=== PATIENT | male | born 1985 | race African-American/Black ===

== ENCOUNTER 2024-04-01 13:08 | Inpatient (IN) | payer OTHER ==
[2024-04-01 14:58] VITALS: RESP 18; BMI 25.0
[2024-04-01] MEDS ORDERED: BENZOCAINE/MENTHOL (CHLORASEPTIC ) LOZENGE MM PRN (15:48)
[2024-04-01] MEDS ORDERED: IBUPROFEN 400 MG TABLET (FP) PO PRN (15:48)
[2024-04-01] MEDS ORDERED: hydrOXYzine PAMOATE 25 MG CAPSULE (FP) PO PRN (15:48)
[2024-04-01] MEDS ORDERED: MAG HYDROX/AL HYDROX/SIMETH 30 ML UNIT-DOSE CUP PO PRN (15:48)
[2024-04-01] MEDS ORDERED: NALOXONE HCL 0.4 MG/ML VIAL IM PRN (15:48)
[2024-04-01] MEDS ORDERED: ACETAMINOPHEN 325 MG TABLET (FP) PO PRN (15:48)
[2024-04-01] MEDS ORDERED: NALOXONE HCL (KLOXXADO) 8 MG SPRAY NS PRN (15:48)
[2024-04-01] MEDS ORDERED: LOPERAMIDE HCL 2 MG CAPSULE PO PRN (15:48)
[2024-04-01] MEDS ORDERED: guaiFENesin 600 MG TABLET.ER (FP) PO PRN (15:48)
[2024-04-01] MEDS ORDERED: POLYETHYLENE GLYCOL (HEALTHYLAX) 3350 17 GM PACKET PO PRN (15:48)
[2024-04-01] MEDS ORDERED: BENZONATATE 200 MG CAPSULE PO PRN (15:48)
[2024-04-01] MEDS ORDERED: MAGNESIUM HYDROX 2400MG/30ML ORAL SUSPENSION 30 ML CUP PO PRN (15:48)
[2024-04-01] MEDS ORDERED: IBUPROFEN 600 MG TABLET (FP) PO PRN (15:48)
[2024-04-01] MEDS ORDERED: PRENATAL VITAMINS W/ FOLIC ACID TABLET (FP) PO ONE (18:16)
[2024-04-01] MEDS: PRENATAL VITAMINS W/ FOLIC ACID TABLET (FP) PO SCH (18:18)
[2024-04-01] MEDS ORDERED: TUBERCULIN PPD 5 TU/0.1ML VIAL ID ONE (20:33)
[2024-04-01] MEDS: MELATONIN 5 MG TABLETS PO SCH (21:38)
[2024-04-01] MEDS: THIAMINE 100 MG TABLET PO SCH (21:38)
[2024-04-01] MEDS: AMMONIUM LACTATE 12% LOTION 225 GM BOTTLE TP SCH (21:39)
[2024-04-02] MEDS: BICTEGRAV/EMTRICIT/TENOFOV (BIKTARVY) 50-200-25 MG TABLET PO SCH (07:12)
[2024-04-02] MEDS: CHLORHEXIDINE GLUCONATE 4% CLEANSER FOR DECOLONIZATION TP SCH (10:58)
[2024-04-02] MEDS: SPIRONOLACTONE 25 MG TABLET PO SCH (10:58)
[2024-04-02] MEDS: FLUTICASONE PROP 0.05% 16 GM NASAL SPRAY NS SCH (10:58)
[2024-04-02 12:34] LABS: CHLORIDE 108 mmol/L (98-107); HEMATOCRIT 37.6 % (35.4-49); HEMOGLOBIN 12.4 GM/dL (11.7-16.9); MCH 30.5 pg (25.7-33.7); MCHC 32.9 g/dl (32.0-35.9); MEAN CELL VOLUME 92.6 fl (80-96); MEAN PLT VOLUME 9.7 fl (7.5-11.1); PLATELET COUNT 141 10^3/uL (134-434); POTASSIUM 3.8 mmol/L (3.5-5.1); RBC 4.06 M/mm3 (4.00-5.60); RDW 14.2 % (11.9-15.9); SODIUM 139 mmol/L (136-145); WHITE BLOOD COUNT 3.9 K/mm3 (4.0-10.0)
[2024-04-02 12:39] LABS: ALBUMIN 2.6 g/dl (3.4-5.0); ANION GAP 3 mmol/L (4-13); CALCIUM 8.6 mg/dL (8.5-10.1); CO2 28 mmol/L (21-32); GLUCOSE,RANDOM 92 mg/dL (74-106)
[2024-04-02 12:40] LABS: BLOOD UREA NITROGEN 8.4 mg/dL (7-18)
[2024-04-02 12:42] LABS: CREATININE 0.7 mg/dL (0.55-1.3); SGPT/ALT 17 U/L (13-61)
[2024-04-02 12:43] LABS: SGOT/AST 14 U/L (15-37)
[2024-04-02 12:44] LABS: BILIRUBIN,TOTAL 0.3 mg/dL (0.2-1); TOT PROT 6.1 g/dl (6.4-8.2)
[2024-04-02 12:45] LABS: ALK PHOS 70 U/L (45-117)
[2024-04-02 13:41] LABS: SYPHILIS W/ RPR CONF REACTIVE (NONREACTIVE)
[2024-04-03 20:16] LABS: PH,URINE 7.5 (5.0-8.0); URINE APPEARANCE CLEAR; URINE BILIRUBIN NEGATIVE (NEGATIVE); URINE COLOR YELLOW; URINE GLUCOSE (UA) NEGATIVE (NEGATIVE); URINE KETONE NEGATIVE (NEGATIVE); URINE LEUK ESTERASE NEGATIVE (NEGATIVE); URINE NITRITE NEGATIVE (NEGATIVE); URINE PROTEIN NEGATIVE (NEGATIVE)
[2024-04-03 21:14] VITALS: BP 111/66; PULSE 81; TEMP 97.2
[2024-04-08] MEDS ORDERED: ESTRADIOL VALERATE 100 MG/5 ML VIAL IM SCH (10:00)
== END 2024-04-04 07:24 | disposition short-term general hospital (02) | DRG 772 ==
LOC: YASAS 13:08 → Y5N 18:20
PROVIDERS: ADMIT Allergy & Immunology; ATTEND Psychiatry & Neurology Pain Medicine
PROC: HZ42ZZZ Group Counseling for Substance Abuse Treatment, Cognitive-Behavioral (ICD-10-PCS; principal; 2024-04-01)
DX: F15.20 Other stimulant dependence, uncomplicated (principal); F64.0 Transsexualism; Z21 Asymptomatic human immunodeficiency virus [HIV] infection status; R55 Syncope and collapse; Z79.899 Other long term (current) drug therapy; Z79.890 Hormone replacement therapy
CPT/HCPCS: 36415; 80053; 80305; 80307; 81003; 82962; 85027; 86593; 86780; 86803; 87811; 93005; 93010

== ENCOUNTER 2024-04-03 22:29 | Observation (INO) | payer OTHER ==
[2024-04-03 23:31] VITALS: BMI 23.0
[2024-04-03] MEDS: SODIUM CHLORIDE 0.9% 500 ML INFUS.BAG IV ONE (23:52)
[2024-04-04] LABS: BASO % 0.7 % (0-2.0); EOS % 3.6 % (0-4.5); HEMATOCRIT 37.8 % (35.4-49); HEMOGLOBIN 12.5 GM/dL (11.7-16.9); LYMPH % 27.9 % (8-40); MCH 30.1 pg (25.7-33.7); MEAN CELL VOLUME 91.2 fl (80-96); MEAN PLT VOLUME 8.2 fl (7.5-11.1); MONO % 10.8 % (3.8-10.2); PLATELET COUNT 164 10^3/uL (134-434); RBC 4.14 M/mm3 (4.00-5.60); RDW 14.3 % (11.9-15.9); WHITE BLOOD COUNT 5.3 K/mm3 (4.0-10.0)
[2024-04-04 00:28] LABS: ALBUMIN 2.7 g/dl (3.4-5.0); BLOOD UREA NITROGEN 12.6 mg/dL (7-18); CALCIUM 8.6 mg/dL (8.5-10.1); MAGNESIUM 1.8 mg/dL (1.8-2.4)
[2024-04-04 00:32] LABS: CREATININE 0.8 mg/dL (0.55-1.3)
[2024-04-04 00:33] LABS: BILIRUBIN,TOTAL 0.3 mg/dL (0.2-1); TOT PROT 6.4 g/dl (6.4-8.2)
[2024-04-04 06:03] VITALS: RESP 18
[2024-04-04 09:01] LABS: HEMOGLOBIN 12.8 GM/dL (11.7-16.9); MCH 30.6 pg (25.7-33.7); MCHC 33.6 g/dl (32.0-35.9); MEAN PLT VOLUME 8.4 fl (7.5-11.1); PLATELET COUNT 152 10^3/uL (134-434); RBC 4.17 M/mm3 (4.00-5.60); RDW 14.2 % (11.9-15.9); WHITE BLOOD COUNT 4.2 K/mm3 (4.0-10.0)
[2024-04-04 09:22] LABS: ALBUMIN 2.7 g/dl (3.4-5.0); BLOOD UREA NITROGEN 12.1 mg/dL (7-18); CALCIUM 8.6 mg/dL (8.5-10.1); MAGNESIUM 1.6 mg/dL (1.8-2.4)
[2024-04-04 09:25] LABS: CREATININE 0.7 mg/dL (0.55-1.3)
[2024-04-04 09:26] LABS: BILIRUBIN,TOTAL 0.4 mg/dL (0.2-1); TOT PROT 6.5 g/dl (6.4-8.2)
[2024-04-04] MEDS: MAGNESIUM 2GM/50ML STERILE WATER IVPB IVPB ONE (10:16)
[2024-04-04] MEDS: BICTEGRAV/EMTRICIT/TENOFOV (BIKTARVY) 50-200-25 MG TABLET PO SCH (10:17)
[2024-04-04] MEDS: ENOXAPARIN NA (PORCINE) 40 MG/0.4 ML DISP.SYRIN SQ SCH (10:17)
[2024-04-04 16:30] VITALS: BP 129/61; PULSE 83; TEMP 98.2
[2024-04-04] MEDS ORDERED: MELATONIN 5 MG TABLETS PO PRN (22:00)
== END 2024-04-04 20:25 | disposition home or self-care (01) ==
LOC: JER 22:29 → UNDOADMOB 04-04 01:39 → JERBED 04-04 01:39 → OBSVTOIN 04-04 03:32 → INTOOBSV 04-04 03:32 → J4S 04-04 05:00 → JERBED 04-04 05:00 → J4S 04-04 11:04 → JERBED 04-04 11:04
PROVIDERS: ADMIT Internal Medicine; ATTEND Internal Medicine
PROC: 3E023GC Introduction of Other Therapeutic Substance into Muscle, Percutaneous Approach (ICD-10-PCS; principal; 2024-04-04)
PROC: 3E033GC Introduction of Other Therapeutic Substance into Peripheral Vein, Percutaneous Approach (ICD-10-PCS; 2024-04-04)
PROC: 3E0337Z Introduction of Electrolytic and Water Balance Substance into Peripheral Vein, Percutaneous Approach (ICD-10-PCS; 2024-04-04)
DX: R55 Syncope and collapse (principal); R42 Dizziness and giddiness; F11.90 Opioid use, unspecified, uncomplicated; F64.0 Transsexualism; Z79.890 Hormone replacement therapy; B20 Human immunodeficiency virus [HIV] disease; F41.8 Other specified anxiety disorders; F43.10 Post-traumatic stress disorder, unspecified; F31.9 Bipolar disorder, unspecified; Z29.89 Encounter for other specified prophylactic measures
CPT/HCPCS: 36415; 70450-TC; 71045-TC-FY; 80053; 80061; 82962; 83036; 83735; 84100; 84443; 84484; 85025; 85027; 93306-TC; 96372; 96374; 99285-25; G0378

== ENCOUNTER 2024-04-04 17:40 | Inpatient (IN) | payer OTHER ==
[2024-04-04 18:49] VITALS: BMI 24.4
[2024-04-04] MEDS ORDERED: P-EPHED 60MG/TRIPROLIDI 2.5MG TABLET PO PRN (20:18)
[2024-04-04] MEDS ORDERED: BENZONATATE 200 MG CAPSULE PO PRN (20:18)
[2024-04-04] MEDS ORDERED: ACETAMINOPHEN 325 MG TABLET (FP) PO PRN (20:18)
[2024-04-04] MEDS ORDERED: MAG HYDROX/AL HYDROX/SIMETH 30 ML UNIT-DOSE CUP PO PRN (20:18)
[2024-04-04] MEDS ORDERED: BENZOCAINE/MENTHOL (CHLORASEPTIC ) LOZENGE MM PRN (20:18)
[2024-04-04] MEDS ORDERED: POLYETHYLENE GLYCOL (HEALTHYLAX) 3350 17 GM PACKET PO PRN (20:18)
[2024-04-04] MEDS ORDERED: LOPERAMIDE HCL 2 MG CAPSULE PO PRN (20:18)
[2024-04-04] MEDS ORDERED: guaiFENesin 600 MG TABLET.ER (FP) PO PRN (20:18)
[2024-04-04] MEDS ORDERED: MAGNESIUM HYDROX 2400MG/30ML ORAL SUSPENSION 30 ML CUP PO PRN (20:18)
[2024-04-04] MEDS: MELATONIN 5 MG TABLETS PO SCH (22:05)
[2024-04-04] MEDS: THIAMINE 100 MG TABLET PO SCH (22:06)
[2024-04-05] MEDS: PRENATAL VITAMINS W/ FOLIC ACID TABLET (FP) PO SCH (09:49)
[2024-04-05] MEDS: BICTEGRAV/EMTRICIT/TENOFOV (BIKTARVY) 50-200-25 MG TABLET PO SCH (09:49)
[2024-04-05] MEDS: FLUTICASONE PROP 0.05% 16 GM NASAL SPRAY NS SCH (09:50)
[2024-04-06] MEDS: AMMONIUM LACTATE 12% LOTION 225 GM BOTTLE TP PRN (09:36)
[2024-04-07] MEDS: SALICYLIC ACID/SULFUR 1 APPLIC SHAMPOO.G. TP PRN (14:42)
[2024-04-08] MEDS: ESTRADIOL VALERATE 100 MG/5 ML VIAL IM SCH (10:46)
[2024-04-16] MEDS: IBUPROFEN 600 MG TABLET (FP) PO PRN (09:46)
[2024-04-16] MEDS: IBUPROFEN 400 MG TABLET (FP) PO PRN (21:38)
[2024-04-19] MEDS ORDERED: BENZOCAINE 20 % GEL TUBE MM PRN (12:50)
[2024-04-19] MEDS: AMOX TR/POT CLAV 875MG/125MG TABLETS (FP) PO SCH (17:14)
[2024-04-20 12:07] LABS: HEMATOCRIT 37.8 % (35.4-49); HEMOGLOBIN 12.6 GM/dL (11.7-16.9); MCH 31.1 pg (25.7-33.7); MCHC 33.5 g/dl (32.0-35.9); MEAN CELL VOLUME 92.9 fl (80-96); MEAN PLT VOLUME 9.1 fl (7.5-11.1); PLATELET COUNT 207 10^3/uL (134-434); RBC 4.06 M/mm3 (4.00-5.60); WHITE BLOOD COUNT 4.8 K/mm3 (4.0-10.0)
[2024-04-20 12:37] LABS: ANISOCYTOSIS 0; MACROCYTOSIS 0
[2024-04-21] MEDS: ARTIFICIAL TEARS OPHTHALMIC DROPS OS PRN (16:20)
[2024-04-23 07:13] VITALS: RESP 18
[2024-04-29 06:56] VITALS: BP 124/67; PULSE 65; TEMP 96.7
== END 2024-04-29 09:50 | disposition other institution (70) | DRG 772 ==
LOC: YASAS 17:40 → Y5N 21:25
PROVIDERS: ADMIT Allergy & Immunology; ATTEND Psychiatry & Neurology Pain Medicine
PROC: HZ42ZZZ Group Counseling for Substance Abuse Treatment, Cognitive-Behavioral (ICD-10-PCS; principal; 2024-04-04)
DX: F15.20 Other stimulant dependence, uncomplicated (principal); F17.210 Nicotine dependence, cigarettes, uncomplicated; F31.9 Bipolar disorder, unspecified; F41.9 Anxiety disorder, unspecified; F43.10 Post-traumatic stress disorder, unspecified; F64.0 Transsexualism; K04.7 Periapical abscess without sinus; Z79.890 Hormone replacement therapy; Z79.899 Other long term (current) drug therapy; Z86.19 Personal history of other infectious and parasitic diseases; Z59.01 Sheltered homelessness
CPT/HCPCS: 36415; 85025; 87811

== ENCOUNTER 2024-06-23 14:57 | Inpatient (IN) | payer OTHER ==
[2024-06-23 15:59] VITALS: BMI 28.8
[2024-06-23] MEDS ORDERED: MAG HYDROX/AL HYDROX/SIMETH 30 ML UNIT-DOSE CUP PO PRN (18:51)
[2024-06-23] MEDS ORDERED: NALOXONE HCL 0.4 MG/ML VIAL IM PRN (18:51)
[2024-06-23] MEDS ORDERED: BENZONATATE 200 MG CAPSULE PO PRN (18:51)
[2024-06-23] MEDS ORDERED: LOPERAMIDE HCL 2 MG CAPSULE PO PRN (18:51)
[2024-06-23] MEDS ORDERED: POLYETHYLENE GLYCOL (HEALTHYLAX) 3350 17 GM PACKET PO PRN (18:51)
[2024-06-23] MEDS ORDERED: IBUPROFEN 600 MG TABLET (FP) PO PRN (18:51)
[2024-06-23] MEDS ORDERED: NALOXONE (NARCAN) HCL 4 MG/0.1 ML SPRAY NS PRN (18:51)
[2024-06-23] MEDS ORDERED: ACETAMINOPHEN 325 MG TABLET (FP) PO PRN (18:51)
[2024-06-23] MEDS ORDERED: IBUPROFEN 400 MG TABLET (FP) PO PRN (18:51)
[2024-06-23] MEDS ORDERED: MAGNESIUM HYDROX 2400MG/30ML ORAL SUSPENSION 30 ML CUP PO PRN (18:51)
[2024-06-23] MEDS ORDERED: BENZOCAINE/MENTHOL (CHLORASEPTIC ) LOZENGE MM PRN (18:51)
[2024-06-23] MEDS ORDERED: guaiFENesin 600 MG TABLET.ER (FP) PO PRN (18:51)
[2024-06-23] MEDS ORDERED: hydrOXYzine PAMOATE 25 MG CAPSULE (FP) PO PRN (18:51)
[2024-06-23] MEDS: MELATONIN 5 MG TABLETS PO SCH (21:53)
[2024-06-23] MEDS: SENNOSIDES 8.6MG TABLET (FP) PO SCH (21:53)
[2024-06-23] MEDS: THIAMINE 100 MG TABLET PO SCH (21:53)
[2024-06-24] MEDS: SPIRONOLACTONE 25 MG TABLET PO SCH (09:21)
[2024-06-24] MEDS: BICTEGRAV/EMTRICIT/TENOFOV (BIKTARVY) 50-200-25 MG TABLET PO SCH (09:21)
[2024-06-24] MEDS: PRENATAL VITAMINS W/ FOLIC ACID TABLET (FP) PO SCH (09:21)
[2024-06-24 14:21] LABS: HEMATOCRIT 36.4 % (35.4-49); HEMOGLOBIN 12.1 GM/dL (11.7-16.9); MCH 32.9 pg (25.7-33.7); MCHC 33.3 g/dl (32.0-35.9); MEAN CELL VOLUME 98.7 fl (80-96); MEAN PLT VOLUME 9.3 fl (7.5-11.1); PLATELET COUNT 161 10^3/uL (134-434); RBC 3.69 M/mm3 (4.00-5.60); RDW 14.3 % (11.9-15.9); WHITE BLOOD COUNT 3.2 K/mm3 (4.0-10.0)
[2024-06-24 14:25] LABS: CHLORIDE 105 mmol/L (98-107); POTASSIUM 4.1 mmol/L (3.5-5.1); SODIUM 139 mmol/L (136-145)
[2024-06-24 14:30] LABS: ALBUMIN 3.4 g/dl (3.4-5.0); ANION GAP 6 mmol/L (4-13); BLOOD UREA NITROGEN 11.6 mg/dL (7-18); CALCIUM 8.1 mg/dL (8.5-10.1); CO2 28 mmol/L (21-32); GLUCOSE,RANDOM 52 mg/dL (74-106)
[2024-06-24 14:32] LABS: CREATININE 0.7 mg/dL (0.55-1.3); SGOT/AST 27 U/L (15-37); SGPT/ALT 36 U/L (13-61)
[2024-06-24 14:34] LABS: BILIRUBIN,TOTAL 0.9 mg/dL (0.2-1); TOT PROT 7.3 g/dl (6.4-8.2)
[2024-06-24 14:35] LABS: ALK PHOS 54 U/L (45-117)
[2024-06-24 16:20] LABS: SYPHILIS W/ RPR CONF REACTIVE (NONREACTIVE)
[2024-06-24 17:00] LABS: EPI CELLS >36 /uL (0-25.1); HYALINE CASTS 10 /uL (0-3.1); PH,URINE 5.5 (5.0-8.0); URINE APPEARANCE CLOUDY; URINE BACTERIA >9,000 /uL (0-1359); URINE BILIRUBIN NEGATIVE (NEGATIVE); URINE COLOR DK YELLOW; URINE GLUCOSE (UA) NEGATIVE (NEGATIVE); URINE KETONE NEGATIVE (NEGATIVE); URINE LEUK ESTERASE TRACE (NEGATIVE); URINE NITRITE POSITIVE (NEGATIVE); URINE PROTEIN NEGATIVE (NEGATIVE); URINE RBC 5 /uL (0-23.9); URINE UROBILINOGEN 0.2 mg/dL (0.2-1.0); URINE WBC 81 /uL (0-25.8)
[2024-06-24] MEDS: OLANZapine 10 MG TABLET PO SCH (21:52)
[2024-06-27 13:55] LABS: EPI CELLS 14 /uL (0-25.1); HYALINE CASTS 0 /uL (0-3.1); PH,URINE 5.5 (5.0-8.0); URINE APPEARANCE CLEAR; URINE BACTERIA 8931 /uL (0-1359); URINE BILIRUBIN NEGATIVE (NEGATIVE); URINE COLOR YELLOW; URINE GLUCOSE (UA) NEGATIVE (NEGATIVE); URINE KETONE NEGATIVE (NEGATIVE); URINE LEUK ESTERASE 1+ (NEGATIVE); URINE NITRITE NEGATIVE (NEGATIVE); URINE PROTEIN NEGATIVE (NEGATIVE); URINE RBC 15 /uL (0-23.9); URINE UROBILINOGEN 0.2 mg/dL (0.2-1.0); URINE WBC 79 /uL (0-25.8)
[2024-06-28] MEDS: SULFAMETHOXAZOLE/TRIMETHOPRIM 800MG/160MG D.S. TABLET PO SCH (10:06)
[2024-06-29] MEDS: SELENIUM SULFIDE 2.25% 180 ML SHAMPOO TP SCH (12:03)
[2024-06-29] MEDS: NITROFURANTOIN MONOHYD/M-CRYST 100 MG CAPSULE PO SCH (13:38)
[2024-06-30] MEDS: AMMONIUM LACTATE 12% LOTION 225 GM BOTTLE TP PRN (11:35)
[2024-07-04 06:37] VITALS: RESP 18
[2024-07-07 06:53] VITALS: TEMP 97.3
[2024-07-07 09:33] VITALS: BP 125/68; PULSE 94
== END 2024-07-07 10:00 | disposition home or self-care (01) | DRG 772 ==
LOC: YASAS 14:57 → Y3NR 19:02 → Y5N 06-24 11:35
PROVIDERS: ADMIT Allergy & Immunology; ATTEND Psychiatry & Neurology Pain Medicine
PROC: HZ42ZZZ Group Counseling for Substance Abuse Treatment, Cognitive-Behavioral (ICD-10-PCS; principal; 2024-06-23)
DX: F10.230 Alcohol dependence with withdrawal, uncomplicated (principal); F14.20 Cocaine dependence, uncomplicated; F15.20 Other stimulant dependence, uncomplicated; F64.0 Transsexualism; F19.94 Other psychoactive substance use, unspecified with psychoactive substance-induced mood disorder; J45.909 Unspecified asthma, uncomplicated; N39.0 Urinary tract infection, site not specified; Z21 Asymptomatic human immunodeficiency virus [HIV] infection status; Z79.890 Hormone replacement therapy; Z87.891 Personal history of nicotine dependence; Z87.890 Personal history of sex reassignment; Z86.59 Personal history of other mental and behavioral disorders; Z86.19 Personal history of other infectious and parasitic diseases; Z56.0 Unemployment, unspecified; Z59.00 Homelessness unspecified
CPT/HCPCS: 36415; 80053; 80305; 80307; 81003; 85027; 86359; 86360; 86593; 86780; 86803; 87086; 87186; 87811; 93005; 93010